=== PATIENT | male | born 1945 | race African-American/Black ===

== ENCOUNTER 2016-03-04 10:05 | Emergency (ER) | payer MEDICARE ==
[2016-03-04 10:06] VITALS: BP 180/89; PULSE 72; RESP 15; TEMP 98; O2SAT 97
--- NOTE | 2016-03-04 10:34 | PD ---
HPI Chief Complaint: Complaint Time Seen by Provider: 10:22 Travel History International Travel<30 days: No Contact w/Intl Traveler<30days: No Traveled to known affect area: No History of Present Illness HPI This patient is visiting from [place]. Complains of having frequent urination with some dysuria for the last 4 days. Symptoms severity is mild to moderate. He denies fever or flank pain. He rarely goes to the doctor but has no history of prostate disease. He does not feel like his bladder is full. No incontinence. PFSH Past Medical History Medical History: Denies Significant Hx Past Surgical History Surgical History: No Previous Surgery Social History Alcohol Use: No Tobacco Use: No Substance Use: No Allergies-Medications (Allergen,Severity, Reaction): Coded Allergies: No Known Allergies (Unverified , 03/04/16) Reported Meds & Prescriptions Reported Meds & Active Scripts Active No Active Prescriptions or Reported Medications Review of Systems General / Constitutional: No: Fever HENT: No: Headaches Cardiovascular: No: Chest Pain or Discomfort Respiratory: No: Cough Physical Exam Narrative GASTROINTESTINAL: Abdomen soft, non-tender, nondistended. Positive bowel sounds. No hepato-splenomegaly, or palpable masses. No guarding. SKIN: Inspection shows no rash or ulcers. Palpation shows no induration or nodules. Psych: Normal mood and affect. Normal insight and judgment. No suprapubic distention or fullness or tenderness Data Data Last Documented VS Vital Signs Date Time Temp Pulse Resp B/P Pulse Ox O2 Delivery O2 Flow Rate FiO2 03/04/16 10:06 98.0 72 15 180/89 97 Orders Urinalysis - C+S If Indicated (03/04/16 10:31) Labs Laboratory Tests Test 03/04/16 10:40 Urine Color YELLOW Urine Turbidity CLEAR Urine pH 6.5 Urine Specific [place] 1.018 Urine Protein NEG mg/dL Urine Glucose (UA) NEG mg/dL Urine Ketones NEG mg/dL Urine Occult Blood NEG Urine Nitrite NEG Urine Bilirubin NEG Urine Urobilinogen LESS THAN 2.0 MG/DL Urine Leukocyte Esterase NEG Urine RBC LESS THAN 1 /hpf Urine WBC 3 /hpf Urine Mucus FEW /lpf Microscopic Urinalysis Comment CULT NOT INDICATED MDM Medical Decision Making Medical Screen Exam Complete: Yes Emergency Medical Condition: Yes Medical Record Reviewed: Yes Differential Diagnosis UTI, BPH, hyperglycemia Narrative Course I have reviewed the patient's electronic medical record. Accu-Chek is 88 Urinalysis is normal He is not having urinary retention He likely has some prostate issues causing these difficulties. I think he should follow-up with either primary care or urology as he is here in town for 3 months as a [place] from [place]. Diagnosis Primary Impression: Urinary frequency Additional Impression: Urinary urgency Additional Instructions: Follow-up with primary care or urology Med/Other Pt SpecificInfo: Other Scripts No Active Prescriptions or Reported Meds Disposition: 01 DISCHARGE HOME Condition: Stable Cabrera Aranda MD Mar 04, 2016 10:34
[2016-03-04 10:59] LABS: BLOOD, URINE NEG (NEG); COMMENT (UR) CULT NOT INDICATED; CULTURE IF INDICATED CULT NOT INDICATED; GLUCOSE,URINE NEG (NEG); KETONE, URINE NEG (NEG); MUCUS URINE FEW /lpf (OCC); NITRITE,URINE NEG (NEG); PH, URINE 6.5 (5.0-8.5); URINE COLOR YELLOW (YELLW/STRAW)
== END 2016-03-04 13:04 | disposition home or self-care (01) ==
LOC: NEPA 10:05
DX: R35.0 Frequency of micturition (principal); R39.15 Urgency of urination
CPT/HCPCS: 81001; 99283